=== PATIENT | male | born 1980 | race Caucasian/White ===

== ENCOUNTER 2018-04-02 05:42 | Emergency (ER) | payer MEDICAID, SELFPAY ==
[2018-04-02 05:48] VITALS: BP 159/98; PULSE 104; RESP 22; TEMP 36.7; O2SAT 95
[2018-04-02 05:53] VITALS: RESP 22
--- NOTE | 2018-04-02 06:02 | W.ED.GENAD ---
Discharge Plan Disposition Patient Disposition: HOME Condition: Stable Discharge Details Chief Complaint: SOB Clinical Impression: Asthma exacerbation in COPD Primary Care Provider: Matthew Arriaga ED Provider: Gus Pyle Home Meds and New Rx's Prescriptions: New prednisone 20 mg tablet 60 mg PO DAILY 4 Days Qty: 12 RF: 0 doxycycline hyclate 100 mg tablet 100 mg PO BID Qty: 14 RF: 0 Discharge Instructions Instructions: COPD (Chronic Obstructive Pulmonary Disease) (ED) Additional Instructions: Given your smoking history you likely have COPD. You need to follow up with your primary care provider within 2 weeks and discuss having definite testing for this IF you feel you are having worsening shortness of breath despite using your inhaler return to the emergency department Medical Decision Making 37 yo male with hx of chronic smoking comes in with chief complaint of cough and shortness of breath for over a week. HE denies fevers, rashes, recent travel. HE is speaking in full sentences but does have diffuse wheezing in all lung chaney bilaterally, no calf swellingor le edema or calf pain, no jvd. I suspect the patient has undiagnosed copd given his extensive smoking hx and is having a copd eacerbaton, will tx with steroids, nebs and abx. HE has no fever or focal localizing findings on cxr so doubt pna at this time. NO chest pain or evidence of dvt so doubt PE and no jvd or chest pain/pressure to suggest acs or chf pt feels significantly better with nebs and steroids/abx, mild wheezing at the bases bilaterally and 02 sat 98% on room air. will d/c home with inhaler and steroid prescription and doxy, advised f/u with pcp and return precautions given Differential Diagnosis copd, bronchitis, uri, pna HPI General Mode of arrival: ambulatory. Date/Time Provider Initiated Documentation: 04/02/18 05:49. Limitations to Documentation: no limitations. Information obtained by: patient. History of Present Illness 37 year old M presents to the emergency department with the chief complaint of cough, described as moderate, with intensity rated at 5. Patient reports no radiation. Patient started experiencing this week(s) (1) and it has been constant. No relieving factors improve symptom(s), No exacerbating factors reported . Patient did receive the following treatments prior to arrival, none Related Data Home Medications Medication Instructions Recorded Confirmed doxycycline hyclate 100 mg PO BID #14 tab 04/02/18 prednisone 60 mg PO DAILY 4 Days #12 tab 04/02/18 Previous Rx's Medication Instructions Recorded doxycycline hyclate 100 mg PO BID #14 tab 04/02/18 prednisone 60 mg PO DAILY 4 Days #12 tab 04/02/18 Allergies Allergy/AdvReac Type Severity Reaction Status Date / Time No Known Allergies Allergy Unverified 04/02/18 05:56 General Stated Complaint: SOB APPLE: 3 Review of Systems Review of Systems All systems reviewed & are unremarkable except as noted in HPI and below Constitutional Denies chills, Denies fever(s) and Denies weakness Eyes Denies loss of vision Cardiovascular Denies chest pain Gastrointestinal Denies abdominal pain, Denies nausea and Denies vomiting Genitourinary Denies dysuria Musculoskeletal Denies joint swelling Neurologic Denies loss of vision and Denies weakness [facility] Social History Smoking/Tobacco Use Status: Current every day Exam Const General: no acute distress Orientation: alert HENMT Head: normal to inspection Ears: external ears normal General nose exam: external nose normal Mouth: moist mucous membranes Eyes General: appearance normal, both eyes and all related structures Neck Neck: normal visual inspection Resp Effort & Inspection: normal respiratory effort, able to speak in complete sentences and audible wheezes Cardio Rate: regular rate Skin General skin exam: no rashes or lesions noted Neuro General: alert and oriented x3 Extrem General: normal to inspection Psych Mental Status: mental status grossly normal Course Vital Signs Temperature 36.7 C 04/02/18 05:48 Pulse 104 H 04/02/18 05:48 Respiratory Rate 22 04/02/18 05:48 Blood Pressure 159/98 H 04/02/18 05:48 Pulse Oximetry 95 04/02/18 05:48 Temperature 36.7 C 04/02/18 05:48 Temperature Source Temporal Artery Scan 04/02/18 05:48 Pulse 104 H 04/02/18 05:48 Respiratory Rate 22 04/02/18 05:53 Respiratory Effort 04/02/18 05:53 Respiratory Depth Normal 04/02/18 05:53 Respiratory Pattern Normal 04/02/18 05:53 Blood Pressure 159/98 H 04/02/18 05:48 Pulse Oximetry 95 04/02/18 05:48 Oxygen Delivery Method Room Air 04/02/18 05:48 Oxygen Flow Rate 0 04/02/18 05:48 Pain Level 8 04/02/18 05:48
--- NOTE | 2018-04-02 06:06 | ED.GENADUL_ITS ---
Discharge Plan Disposition Patient Disposition: HOME Condition: Stable Discharge Details Chief Complaint: SOB Clinical Impression: Asthma exacerbation in COPD Primary Care Provider: Matthew Arriaga ED Provider: Gus Pyle Home Meds and New Rx's Prescriptions: New prednisone 20 mg tablet 60 mg PO DAILY 4 Days Qty: 12 RF: 0 doxycycline hyclate 100 mg tablet 100 mg PO BID Qty: 14 RF: 0 Discharge Instructions Instructions: COPD (Chronic Obstructive Pulmonary Disease) (ED) Additional Instructions: Given your smoking history you likely have COPD. You need to follow up with your primary care provider within 2 weeks and discuss having definite testing for this IF you feel you are having worsening shortness of breath despite using your inhaler return to the emergency department Medical Decision Making 37 yo male with hx of chronic smoking comes in with chief complaint of cough and shortness of breath for over a week. HE denies fevers, rashes, recent travel. HE is speaking in full sentences but does have diffuse wheezing in all lung chaney bilaterally, no calf swellingor le edema or calf pain, no jvd. I suspect the patient has undiagnosed copd given his extensive smoking hx and is having a copd eacerbaton, will tx with steroids, nebs and abx. HE has no fever or focal locali zing findings on cxr so doubt pna at this time. NO chest pain or evidence of dvt so doubt PE and no jvd or chest pain/pressure to suggest acs or chf pt feels significantly better with nebs and steroids/abx, mild wheezing at the bases bilaterally and 02 sat 98% on room air. will d/c home with inhaler and steroid prescription and doxy, advised f/u with pcp and return precautions given Differential Diagnosis copd, bronchitis, uri, pna HPI General Mode of arrival: ambulatory . Date/Time Provider Initiated Documentation: 04/02/18 05:49 . Limitations to Documentation: no limitations . Information obtained by: patient . History of Present Illness 37 year old M presents to the emergency department with the chief complaint of cough, described as moderate, with intensity rated at 5. Patient reports no radiation. Patient started experiencing this week(s) (1) and it has been constant. No relieving factors improve symptom(s), No exacerbating factors reported . Patient did receive the following treatments prior to arrival, none Related Data Home Medications Medication Instructions Recorded Confirmed doxycycline hyclate 100 mg PO BID #14 tab 04/02/18 prednisone 60 mg PO DAILY 4 Days #12 tab 04/02/18 Previous Rx's Medication Instructions Recorded doxycycline hyclate 100 mg PO BID #14 tab 04/02/18 prednisone 60 mg PO DAILY 4 Days #12 tab 04/02/18 Allergies Allergy/AdvReac Type Severity Reaction Status Date / Time No Known Allergies Allergy Unverified 04/02/18 05:56 General Stated Complaint: SOB APPLE: 3 Review of Systems Review of Systems All systems reviewed & are unremarkable except as noted in HPI and below Constitutional Denies chills, Denies fever(s) and Denies weakness Eyes Denies loss of vision Cardiovascular Denies chest pain Gastrointestinal Denies abdominal pain, Denies nausea and Denies vomiting Genitourinary Denies dysuria Musculoskeletal Denies joint swelling Neurologic Denies loss of vision and Denies weakness PFSH Social History Smoking/Tobacco Use Status: Current every day Exam Const General: no acute distress Orientation: alert HENMT Head: normal to inspection Ears: external ears normal General nose exam: external nose normal Mouth: moist mucous membranes Eyes General: appearance normal, both eyes and all related structures Neck Neck: normal visual inspection Resp Effort & Inspection: normal respiratory effort, able to speak in complete sentences and audible wheezes Cardio Rate: regular rate Skin General skin exam: no rashes or lesions noted Neuro General: alert and oriented x3 Extrem General: normal to inspection Psych Mental Status: mental status grossly normal Course Vital Signs Temperature 36.7 C 04/02/18 05:48 Pulse 104 H 04/02/18 05:48 Respiratory Rate 22 04/02/18 05:48 Blood Pressure 159/98 H 04/02/18 05:48 Pulse Oximetry 95 04/02/18 05:48 Temperature 36.7 C 04/02/18 05:48 Temperature Source Temporal Artery Scan 04/02/18 05:48 Pulse 104 H 04/02/18 05:48 Respiratory Rate 22 04/02/18 05:53 Respiratory Effort 04/02/18 05:53 Respiratory Depth Normal 04/02/18 05:53 Respiratory Pattern Normal 04/02/18 05:53 Blood Pressure 159/98 H 04/02/18 05:48 Pulse Oximetry 95 04/02/18 05:48 Oxygen Delivery Method Room Air 04/02/18 05:48 Oxygen Flow Rate 0 04/02/18 05:48 Pain Level 8 04/02/18 05:48
[2018-04-02] MEDS: predniSONE 20 MG TAB 60 MG PO (06:09)
[2018-04-02] MEDS: Doxycycline Hyclate 100 MG CAP PO (06:09)
[2018-04-02 06:10] VITALS: PULSE 104; RESP 10; RESP 22; RESP 4; O2SAT 95
[2018-04-02] MEDS: Albuterol/Ipratropium 3 ML UPD VIAL UPD (06:10)
[2018-04-02 06:21] VITALS: PULSE 104; RESP 10; RESP 12; RESP 22; RESP 4; O2SAT 95
[2018-04-02] MEDS: Albuterol 2.5 MG/3 ML INH SOLN VIAL UPD (06:21)
[2018-04-02] MEDS: Inhaler, Assist Device 1 EACH MC (06:24)
[2018-04-02] MEDS: Albuterol HFA 8 GM 60 PUFF INH IH (06:24)
[2018-04-02 07:05] VITALS: BP 153/94; PULSE 107; RESP 20; O2SAT 95
== END 2018-04-02 07:05 | disposition home or self-care (01) ==
LOC: ER 06:32
PROVIDERS: Emergency Provider Emergency Medicine; PCP Emergency Medicine
DX: J45.901 Unspecified asthma with (acute) exacerbation (principal); J44.9 Chronic obstructive pulmonary disease, unspecified; F17.210 Nicotine dependence, cigarettes, uncomplicated
CPT/HCPCS: 94640; 99284; J7512; J7613; J7620

== ENCOUNTER 2018-10-04 14:57 | Emergency (ER) | payer MEDICAID, SELFPAY ==
[2018-10-04 15:00] VITALS: BP 191/110; PULSE 85; RESP 24; TEMP 37.3; O2SAT 97
--- NOTE | 2018-10-04 15:08 | W.ED.GENAD ---
Discharge Plan Disposition Patient Disposition: HOME Condition: Stable Discharge Details Chief Complaint: RespSymp Clinical Impression: Asthma exacerbation Primary Care Provider: Matthew Arriaga ED Provider: Gus Pyle Home Meds and New Rx's Prescriptions: New prednisone 20 mg tablet 60 mg PO DAILY 4 Days Qty: 12 RF: 0 doxycycline hyclate 100 mg tablet 100 mg PO BID Qty: 14 RF: 0 Discharge Instructions Additional Instructions: Take your next dose of doxycyline tonight and your next dose of prednisone tomorrow use your inhaler every 2 hours, 2 puffs each time for shortness of breath if you are still symptomatic in a week see your primary care provider return to the emergency department if you feel you are becoming more ill or have worsening shortness of breath Medical Decision Making 38 yo male who states he has a hx of asthma and is a chronic smoker, comes in with chief complaint of cough and shortness of breath since yesterday. Denies any recent travel, chest pain or pressure, speaking in full sentences on exam with diffuse wheezing in all lung chaney. Will tx with nebs and steroids, and given increased productive cough and smoking hx will tx as possible copd exacerbation with abx. He appears well sytemically, afebrile and no focal findings on exam so doubt pna at this time. No evidence of dvt, no pleuritic chest pain and exam consistent with asthma/copd so doubt PE at this time pt feeling much better now, only has mild bilateral apical wheezing. Will d/c with inhaler and scripts for steroid and doxy, advised f/u with pcp and return precautions given Differential Diagnosis asthma, copd, pna HPI General Mode of arrival: ambulatory. Date/Time Provider Initiated Documentation: 10/04/18 14:59. Limitations to Documentation: no limitations. Information obtained by: patient. History of Present Illness 38 year old M presents to the emergency department with the chief complaint of shortness of breath, described as moderate, Patient started experiencing this day(s) (1) and it has been constant. No relieving factors improve symptom(s), No exacerbating factors reported . Patient notes cough. Patient did receive the following treatments prior to arrival, none Related Data Home Medications Medication Instructions Recorded Confirmed doxycycline hyclate 100 mg PO BID #14 tab 10/04/18 prednisone 60 mg PO DAILY 4 Days #12 tab 10/04/18 Previous Rx's Medication Instructions Recorded doxycycline hyclate 100 mg PO BID #14 tab 10/04/18 prednisone 60 mg PO DAILY 4 Days #12 tab 10/04/18 Allergies Allergy/AdvReac Type Severity Reaction Status Date / Time No Known Allergies Allergy Unverified 10/04/18 15:03 General Stated Complaint: RespSymp APPLE: 3 Review of Systems Review of Systems All systems reviewed & are unremarkable except as noted in HPI and below Constitutional Denies weakness Cardiovascular Denies chest pain Gastrointestinal Denies abdominal pain, Denies nausea and Denies vomiting Integumentary/Breasts Denies rash Neurologic Denies weakness [facility] Social History Smoking/Tobacco Use Status: Current every day Tobacco Type: cigarettes Alcohol Intake: never Drug use: Never Substance use type: does not use Do you feel safe at home: Yes Do you feel safe in your relationship?: Yes Exam Const General: no acute distress Orientation: alert HENMT Head: normal to inspection Ears: external ears normal General nose exam: external nose normal Mouth: moist mucous membranes Eyes General: appearance normal, both eyes and all related structures Neck Neck: normal visual inspection Resp Effort & Inspection: normal respiratory effort and able to speak in complete sentences Cardio Rate: regular rate Skin General skin exam: no rashes or lesions noted Neuro General: alert and oriented x3 Extrem General: normal to inspection Psych Mental Status: mental status grossly normal Course Vital Signs Temperature 37.3 C 10/04/18 15:00 Pulse 85 10/04/18 15:00 Respiratory Rate 24 10/04/18 15:00 Blood Pressure 191/110 H 10/04/18 15:00 Pulse Oximetry 97 10/04/18 15:00 Temperature 37.3 C 10/04/18 15:00 Temperature Source Temporal Artery Scan 10/04/18 15:00 Pulse 85 10/04/18 15:00 Respiratory Rate 24 10/04/18 15:00 Respiratory Effort Incrsd Work of Breathing 10/04/18 15:02 Blood Pressure 191/110 H 10/04/18 15:00 Blood Pressure Position Sitting 10/04/18 15:00 Pulse Oximetry 97 10/04/18 15:00 Oxygen Delivery Method Room Air 10/04/18 15:00 Oxygen Flow Rate 0 10/04/18 15:00 Pain Level 0 10/04/18 15:00
--- NOTE | 2018-10-04 15:11 | ED.GENADUL_ITS ---
Discharge Plan Disposition Patient Disposition: HOME Condition: Stable Discharge Details Chief Complaint: RespSymp Clinical Impression: Asthma exacerbation Primary Care Provider: Matthew Arriaga ED Provider: uGs Pyle Home Meds and New Rx's Prescriptions: New prednisone 20 mg tablet 60 mg PO DAILY 4 Days Qty: 12 RF: 0 doxycycline hyclate 100 mg tablet 100 mg PO BID Qty: 14 RF: 0 Discharge Instructions Additional Instructions: Take your next dose of doxycyline tonight and your next dose of prednisone tomorrow use your inhaler every 2 hours, 2 puffs each time for shortness of breath if you are still symptomatic in a week see your primary care provider return to the emergency department if you feel you are becoming more ill or have worsening shortness of breath Medical Decision Making 38 yo male who states he has a hx of asthma and is a chronic smoker, comes in with chief complaint of cough and shortness of breath since yesterday. Denies any recent travel, chest pain or pressure, speaking in full sentences on exam with diffuse wheezing in all lung chaney. Will tx with nebs and steroids, and given increased productive cough and smoking hx will tx as possible copd exacerbation with abx. He appears well sytemically, afebrile and no focal findings on exam so doubt pna at this time. No evidence of dvt, no pleuritic chest pain and exam consistent with asthma/copd so doubt PE at this time pt feeling much better now, only has mild bilateral apical wheezing. Will d/c wi th inhaler and scripts for steroid and doxy, advised f/u with pcp and return precautions given Differential Diagnosis asthma, copd, pna HPI General Mode of arrival: ambulatory . Date/Time Provider Initiated Documentation: 10/04/18 14:59 . Limitations to Documentation: no limitations . Information obtained by: patient . History of Present Illness 38 year old M presents to the emergency department with the chief complaint of shortness of breath, described as moderate, Patient started experiencing this day(s) (1) and it has been constant. No relieving factors improve symptom(s), No exacerbating factors reported . Patient notes cough. Patient did receive the following treatments prior to arrival, none Related Data Home Medications Medication Instructions Recorded Confirmed doxycycline hyclate 100 mg PO BID #14 tab 10/04/18 prednisone 60 mg PO DAILY 4 Days #12 tab 10/04/18 Previous Rx's Medication Instructions Recorded doxycycline hyclate 100 mg PO BID #14 tab 10/04/18 prednisone 60 mg PO DAILY 4 Days #12 tab 10/04/18 Allergies Allergy/AdvReac Type Severity Reaction Status Date / Time No Known Allergies Allergy Unverified 10/04/18 15:03 General Stated Complaint: RespSymp APPLE: 3 Review of Systems Review of Systems All systems reviewed & are unremarkable except as noted in HPI and below Constitutional Denies weakness Cardiovascular Denies chest pain Gastrointestinal Denies abdominal pain, Denies nausea and Denies vomiting Integumentary/Breasts Denies rash Neurologic Denies weakness [facility] Social History Smoking/Tobacco Use Status: Current every day Tobacco Type: cigarettes Alcohol Intake: never Drug use: Never Substance use type: does not use Do you feel safe at home: Yes Do you feel safe in your relationship?: Yes Exam Const General: no acute distress Orientation: alert HENMT Head: normal to inspection Ears: external ears normal General nose exam: external nose normal Mouth: moist mucous membranes Eyes General: appearance normal, both eyes and all related structures Neck Neck: normal visual inspection Resp Effort & Inspection: normal respiratory effort and able to speak in complete sentences Cardio Rate: regular rate Skin General skin exam: no rashes or lesions noted Neuro General: alert and oriented x3 Extrem General: normal to inspection Psych Mental Status: mental status grossly normal Course Vital Signs Temperature 37.3 C 10/04/18 15:00 Pulse 85 10/04/18 15:00 Respiratory Rate 24 10/04/18 15:00 Blood Pressure 191/110 H 10/04/18 15:00 Pulse Oximetry 97 10/04/18 15:00 Temperature 37.3 C 10/04/18 15:00 Temperature Source Temporal Artery Scan 10/04/18 15:00 Pulse 85 10/04/18 15:00 Respiratory Rate 24 10/04/18 15:00 Respiratory Effort Incrsd Work of Breathing 10/04/18 15:02 Blood Pressure 191/110 H 10/04/18 15:00 Blood Pressure Position Sitting 10/04/18 15:00 Pulse Oximetry 97 10/04/18 15:00 Oxygen Delivery Method Room Air 10/04/18 15:00 Oxygen Flow Rate 0 10/04/18 15:00 Pain Level 0 10/04/18 15:00
[2018-10-04] MEDS: predniSONE 20 MG TAB 60 MG PO (15:14)
[2018-10-04] MEDS: Doxycycline Hyclate 100 MG CAP PO (15:15)
[2018-10-04] MEDS: Albuterol/Ipratropium 3 ML UPD VIAL (15:15)
[2018-10-04] MEDS: Albuterol/Ipratropium 3 ML UPD VIAL UPD (15:15)
--- NOTE | 2018-10-04 15:16 | NUR.NOTE ---
pt medicated as per mdo breathing treatment in place pt sitting up in bed on cont pulse ox Nursing Note:
--- NOTE | 2018-10-04 15:30 | NUR.NOTE ---
breathing treamtents completed Nursing Note:
[2018-10-04] MEDS: Inhaler, Assist Device 1 EACH MC (15:56)
[2018-10-04] MEDS: Albuterol HFA 8 GM 60 PUFF INH IH (15:57)
[2018-10-04 15:58] VITALS: BP 149/85; PULSE 88; RESP 16; TEMP 36.7; O2SAT 98
--- NOTE | 2018-10-04 16:00 | NUR.NOTE ---
dc/rx reviewed with pt able to verblize understanding ambualtory steady on dc resp even unlabored no acute distress noted vs Nursing Note:
== END 2018-10-04 16:01 | disposition home or self-care (01) ==
PROVIDERS: Emergency Provider Emergency Medicine; PCP Emergency Medicine
DX: J45.901 Unspecified asthma with (acute) exacerbation (principal); F17.210 Nicotine dependence, cigarettes, uncomplicated
CPT/HCPCS: 99283; J7512; J7620

== ENCOUNTER 2019-12-09 14:17 | Outpatient (CLI) | payer MEDICAID, SELFPAY ==
--- NOTE | 2019-12-09 13:33 | DI.CT_ITS ---
EXAM: CT HEAD WO CLINICAL HISTORY: 6 DAY HX OF HEADACHE/HALLUCINATIONS/MEMORY LOSS, R44.3. TECHNIQUE: Imaging Protocol: Axial computed tomography images with coronal and sagittal reformatted images were created and reviewed COMPARISON: No exams were available for comparison FINDINGS: Ventricles and Extra axial spaces: Normal in size and morphology for the patient's age. Hemorrhage: None. Cerebral parenchyma: Normal. Midline shift: None. Brainstem/Cerebellum: Normal. Calvarium: Normal. Visualized Paranasal sinuses/Mastoids: Small mucous retention cyst or polyp in the right maxillary si nus. IMPRESSION: No acute intracranial process. RADIATION DOSE DELIVERED: 804.66mGy.cm Total DLP DATA REPOSITORY: All CT scans at this facility are submitted to the National Radiology Data Registry (NRDR) Dose Index Registry (DIR) with the [employer] (A[employer]). RADIATION OPTIMIZATION: All CT scans at this facility use at least one of these dose optimization te chniques: automated exposure control; mA and/or kV adjustment per patient size (includes targeted exa ms where dose is matched to clinical indication); or iterative reconstruction.
== END 2019-12-09 14:37 ==
PROVIDERS: PCP Emergency Medicine; Visit Provider Family Medicine
DX: R44.3 Hallucinations, unspecified (principal); R51 Headache; R41.3 Other amnesia
CPT/HCPCS: 70450

== ENCOUNTER 2019-12-13 03:02 | Outpatient (CLI) | payer MEDICAID, SELFPAY ==
[2019-12-13 10:10] LABS: HCT 49.5 % (40.0-50.0); HGB 16.1 g/dL (13.5-17.5); MCH 29.7 pg (27.0-33.0); MCHC 32.5 % (32.0-36.0); MCV 91.3 fL (80-95); Platelet Count 211 10^3/uL (130-400); RBC 5.42 10^6/uL (4.36-5.78); RDW 12.7 % (11.8-14.1); RDW-SD 42.2 fL; WBC 7.73 10^3/uL (4.4-10.8)
[2019-12-13 11:44] LABS: ALT 34 U/L (16-63); AST 12 U/L (15-37); Albumin 4.1 g/dL (3.4-5.0); Alkaline Phosphatase 57 U/L (46-116); Anion Gap 7.8 mmol/L (3-11); BUN 14 mg/dL (7-18); Bilirubin, Total 0.6 mg/dL (0.2-1.0); CO2 24.2 mmol/L (21.0-32.0); CREATININE 0.61 mg/dL (0.70-1.30); Calcium 9.3 mg/dL (8.5-10.1); Chloride 107 mmol/L (98-107); Glucose 106 mg/dL (74-106); Potassium 4.6 mmol/L (3.5-5.1); Sodium 139 mmol/L (136-145); Total Protein 7.3 g/dL (6.4-8.2)
== END 2019-12-13 03:22 ==
PROVIDERS: PCP Emergency Medicine; Visit Provider Family Medicine
DX: R51 Headache (principal); R44.1 Visual hallucinations
CPT/HCPCS: 36415; 80053; 85027